=== PATIENT | male | born 1960 | race African-American/Black ===

== ENCOUNTER 2022-11-29 10:00 | Outpatient (CLI) | payer BC, SELFPAY | END 2022-11-29 10:01 | disposition home or self-care (01) | LOC: NFLDREF 17:06 | PROVIDERS: PCP Family Medicine; Referring Provider Family Medicine; Visit Provider Family Medicine | DX: E78.5 Hyperlipidemia, unspecified (principal); I10 Essential (primary) hypertension; I26.99 Other pulmonary embolism without acute cor pulmonale; Z12.5 Encounter for screening for malignant neoplasm of prostate | CPT/HCPCS: 80053; 80061; 84153 ==

== ENCOUNTER 2024-02-17 08:10 | Outpatient (CLI) | payer BC, SELFPAY | END 2024-02-17 08:11 | disposition home or self-care (01) | LOC: NFLDREF 02-22 08:19 | PROVIDERS: PCP Family Medicine; Referring Provider Family Medicine; Visit Provider Family Medicine | DX: Z00.00 Encounter for general adult medical examination without abnormal findings (principal); E78.5 Hyperlipidemia, unspecified; I10 Essential (primary) hypertension; Z12.5 Encounter for screening for malignant neoplasm of prostate | CPT/HCPCS: 80053; 80061; G0103 ==